=== PATIENT | female | born 1935 | race Caucasian/White ===

== ENCOUNTER 2019-11-19 16:42 | Emergency (ER) | payer MEDICARE, BC ==
--- NOTE | 2019-11-19 17:11 | RADIOLOGY REPORT (SQ) ---
EXAM DESCRIPTION: CHEST SINGLE VIEW COMPLETED DATE/TIME: 11/19/2019 5:02 pm REASON FOR STUDY: bed 9 sepsis protocol COMPARISON: None. EXAM PARAMETERS: NUMBER OF VIEWS: One view. TECHNIQUE: Single frontal radiographic view of the chest acquired. RADIATION DOSE: NA LIMITATIONS: None. FINDINGS: LUNGS AND PLEURA: Emphysematous change with hyperinflation. No focal consolidation, pleur al effusion or pneumothorax. MEDIASTINUM AND HILAR STRUCTURES: No masses. Contour normal. HEART AND VASCULAR STRUCTURES: Heart normal in size. Normal vasculature. BONES: No acute findings. HARDWARE: Left subclavian base chest port with catheter tip at SVC. OTHER: No other significant finding. IMPRESSION: Emphysematous change without evidence of acute cardiopulmonary process. TECHNICAL DOCUMENTATION: JOB ID: [id number] 2010 [employer]- All Rights Reserved Reading location - IP/workstation name: [email or web address]
[2019-11-19] MEDS ORDERED: NORMAL SALINE 250 ML IV ONE (17:43)
[2019-11-19] MEDS ORDERED: NORMAL SALINE 1000 ML 1,000 ML IV ONE (17:45)
[2019-11-19 18:11] LABS: ABSOLUTE LYMPHOCYTES (AUTO) 0.8 10^3/uL (0.5-4.7); ABSOLUTE MONOCYTES (AUTO) 0.8 10^3/uL (0.1-1.4); ABSOLUTE NEUT (AUTO) 8.5 10^3/uL (1.7-8.2); BASOPHILS % (AUTO) 0.2 % (0-2); HEMATOCRIT 36.8 % (36.0-47.0); HEMOGLOBIN 12.7 g/dL (12.0-15.5); LYMPHOCYTES % (AUTO) 8.1 % (13-45); MEAN CORPUSCULAR HEMOGLOBIN 31.1 pg (27.0-33.4); MEAN CORPUSCULAR HGB CONC 34.5 g/dL (32.0-36.0); MEAN CORPUSCULAR VOLUME 90 fl (80-97); MONOCYTES % (AUTO) 8.1 % (3-13); PLATELET COUNT 114 10^3/uL (150-450); RED BLOOD COUNT 4.08 10^6/uL (3.72-5.28); RED CELL DISTRIBUTION WIDTH 12.4 % (11.5-14.0); SEGMENTED NEUTROPHILS % (AUTO) 83.6 % (42-78); TOTAL CELLS COUNTED % (AUTO) 100 %; WHITE BLOOD COUNT 10.2 10^3/uL (4.0-10.5)
[2019-11-19 18:18] LABS: INTERNATIONAL RATION (INR) 1.19; PROTHROMBIN TIME 15.2 SEC (11.4-15.4)
[2019-11-19 18:19] LABS: VENOUS BLOOD BASE EXCESS 0.2 mmol/L; VENOUS BLOOD HCO3 24.3 mmol/L (20-32); VENOUS BLOOD PCO2 37.9 mmHg (35-63); VENOUS BLOOD PH 7.42 (7.30-7.42)
[2019-11-19 18:26] LABS: A TYPE INFLUENZA AG NEGATIVE (NEGATIVE); B INFLUENZA AG NEGATIVE (NEGATIVE)
[2019-11-19 18:33] LABS: ALBUMIN 3.2 g/dL (3.5-5.0); ALKALINE PHOSPHATASE 130 U/L (38-126); ANION GAP 10 (5-19); ASPARTATE AMINO TRANSFERASE 30 U/L (14-36); BILIRUBIN,TOTAL 0.6 mg/dL (0.2-1.3); BLOOD UREA NITROGEN 13 mg/dL (7-20); CALCIUM 8.7 mg/dL (8.4-10.2); CARBON DIOXIDE 24 mmol/L (22-30); CHLORIDE 95 mmol/L (98-107); GLUCOSE 172 mg/dL (75-110); POTASSIUM 3.7 mmol/L (3.6-5.0); TOTAL PROTEIN 6.3 g/dL (6.3-8.2)
--- NOTE | 2019-11-19 18:48 | EKG REPORT ---
SEVERITY:- ABNORMAL ECG - SINUS RHYTHM LVH WITH IVCD, LAD AND SECONDARY REPOL ABNRM : Confirmed by: Brenda Vásquez 19-Nov-2019 18:48:10
[2019-11-19 20:44] LABS: APPEARANCE,URINE SLIGHTLY-CLOUDY; BILIRUBIN,URINE NEGATIVE (NEGATIVE); COLOR,URINE YELLOW; GLUCOSE, URINE NEGATIVE (NEGATIVE); KETONES,URINE NEGATIVE (NEGATIVE); PROTEIN,URINE 30 mg/dL (NEGATIVE); URINE SPECIFIC GRAVITY 1.011; UROBILINOGEN,URINE NEGATIVE mg/dL (<2.0)
[2019-11-19] MEDS ORDERED: CIPROFLOXACIN HCL 500 MG TABLET PO ONE (20:52)
[2019-11-19] MEDS ORDERED: LEVOFLOXACIN 750 MG/D5W RTU 750 MG/150 ML RTUPB IV ONE (22:43)
--- NOTE | 2019-11-20 01:39 | ER Document Report ---
Entered by DAGMAR ETIENNE SCRIBE 11/19/19 9916 Acting as scribe for:JAMIE CROSS MD ED General - General Chief Complaint: General Weakness Stated Complaint: WEAKNESS Time Seen by Provider: 11/19/19 17:11 Primary Care Provider: ANDREA MIMS [NO TYRESE MD] - Follow up as needed Information source: Patient, Relative Notes: 84-year-old female presents to the emergency department stating that her "children said I had a bad fever". Patient states that she has no complaints to report when asked. Patient says that "somebody gave me something" for the fever but could not recall what the medication was. Patient's relative stated that this morning, patient could not do anything on her own. Son stated that he had to help her to the bathroom and physically pick her up to move her. Son also stated that she looked "really bad" this morning and that she looks better now. Patient reports chills and cough. Patient denies dysuria, frequency, diarrhea, nausea, vomiting, diaphoresis, sore throat and headache. Past Medical History - General Information source: Patient - Social History Smoking Status: Never Smoker Cigarette use (# per day): No Chew tobacco use (# tins/day): No Frequency of alcohol use: None Drug Abuse: None Lives with: Family Family History: Reviewed & Not Pertinent Patient has suicidal ideation: No Patient has homicidal ideation: No EENT Medical History: Reports: Ears - Deaf Malignancy Medical History: Reports: Hx Pancreatic Cancer Past Surgical History: Reports: Hx Myringotomy - Multiple surgeries throughout life Review of Systems - Review of Systems Constitutional: See HPI, Chills, Fever. denies: Diaphoresis EENT: See HPI. denies: Throat pain Cardiovascular: No symptoms reported Respiratory: See HPI, Cough Gastrointestinal: See HPI. denies: Diarrhea, Nausea, Vomiting Genitourinary: See HPI. denies: Dysuria, Frequency Female Genitourinary: No symptoms reported Musculoskeletal: No symptoms reported Skin: No symptoms reported Hematologic/Lymphatic: No symptoms reported Neurological/Psychological: No symptoms reported -: Yes All other systems reviewed and negative Physical Exam - Vital signs Vitals: Pulse Ox 95 11/19/19 16:48 - Notes Notes: Physical Exam: General: Alert, appears well. HEENT: Normocephalic. Atraumatic. PERRL. Extraocular movements intact. Oropharynx clear. Dry mouth. Neck: Supple. Non-tender. Respiratory: No respiratory distress. Clear and equal breath sounds bilaterally. Cardiovascular: Regular rate and rhythm. Abdominal: Normal Inspection. Non-tender. No distension. Normal Bowel Sounds. Back: No gross abnormalities. Extremities: Moves all four extremities. Upper extremities: Normal inspection. Normal ROM. Lower extremities: Normal inspection. No edema. Normal ROM. Neurological: Normal cognition. AAOx4. Normal speech. Psychological: Normal affect. Normal Mood. Skin: Warm. Dry. Normal color. Course - Re-evaluation Re-evalutation: 11/19/19 17:52 Currently patient states that she has no complaints of any kind at this time. Patient reports family noted that she had a fever therefore she was sent to the emergency department. - Vital Signs Vital signs: Temp Pulse Resp BP Pulse Ox 98.2 F 21 H 130/66 H 95 11/19/19 21:44 11/19/19 20:00 11/19/19 20:00 11/19/19 20:00 - Laboratory Result Diagrams: 11/19/19 17:25 11/19/19 17:25 Laboratory results interpreted by me: 11/19/19 11/19/19 11/19/19 17:25 17:25 20:10 Plt Count 114 L Lymph % (Auto) 8.1 L Absolute Neuts (auto) 8.5 H Seg Neutrophils % 83.6 H Sodium 129.3 L Chloride 95 L Glucose 172 H POC Glucose Alkaline Phosphatase 130 H Albumin 3.2 L Urine Protein 30 H Urine Blood SMALL H Leukocyte Esterase Rfl MODERATE H 11/19/19 22:38 Plt Count Lymph % (Auto) Absolute Neuts (auto) Seg Neutrophils % Sodium Chloride Glucose POC Glucose 160 H Alkaline Phosphatase Albumin Urine Protein Urine Blood Leukocyte Esterase Rfl Urinary tract infection - Diagnostic Test Radiology reviewed: Image reviewed, Reports reviewed Radiology results interpreted by me: 11/19/19 17:52 Chest x-seth showed emphysematous changes without any acute infiltrate no acute cardiopulmonary disease noted. 11/20/19 01:34 Chest x-ray no acute process emphysematous changes as noted by radiologist. - EKG Interpretation by Me Additional EKG results interpreted by me: 11/19/19 17:51 Twelve-lead EKG done 11/19/2019 at 1703 shows normal sinus rhythm rate of 99 left ventricular hypertrophy with interventricular conduction delay LAD and secondary repull abnormalities noted. Discharge - Discharge Clinical Impression: Urinary tract infection, Acute bronchitis, Pancreatic cancer Condition: Good Disposition: HOME, SELF-CARE Instructions: Urinary Tract Infection ([facility]) Additional Instructions: Bronchitis You have acute bronchitis. This disease is an infection or inflammation of the air passageways in your lungs. Symptoms usually include cough, low grade fever, shortness of breath, and wheezing. The cough usually persists for a couple of weeks. Most cases of bronchitis get better without antibiotics. We prescribe antibiotics when we believe bacteria are damaging your airways, or if there's high risk the bronchitis will worsen into pneumonia. Increase your fluid intake. A cool mist humidifier may make your lungs more comfortable. An expectorant (cough medicine that loosens phlegm) can help. If you smoke, STOP!!! Recovery from bronchitis can be somewhat slow, but you should see improvement within a day or two. Repeated episodes of bronchitis may result in lung damage -- for example, chronic bronchitis, recurrent pneumonias, or emphysema. Call the doctor if you develop increasing fever, shortness of breath, chest pain, bloody sputum, or otherwise worsen. If you have not improved at all after several days, contact the physician. Urinary Tract Infection Your evaluation indicates that you have a urinary tract infection. This is due to germs growing in the bladder. This is a common problem. This infection usually responds quickly to antibiotics. Your antibiotic should be taken exactly as prescribed. Drink plenty of fluids -- three to four quarts a day. Occasionally, a bladder anesthetic will be prescribed to help stop the fe eling of urgency until the antibiotic has a chance to clear the infection. This may cause your urine to be dark orange. Certain urine infections require a culture. If the doctor obtained a cult ure, the results will be back in two days. You should call to see if a change in treatment is needed. A repeat urinalysis after you finish treatment is often recommended. The physician will let you know if further testing is required. Call the doctor if you develop fever, chills, flank pain, inability to urinate, or blood in the urine. Prescriptions: Levofloxacin [Levaquin 500 mg Tablet] 500 mg PO DAILY #10 tablet Referrals: FELICITA,NO [NO LOCAL MD] - Follow up as needed I personally performed the services described in the documentation, reviewed and edited the documentation which was dictated to the scribe in my presence, and it accurately records my words and actions.
[2019-11-20 02:33] VITALS: BP 134/72
== END 2019-11-20 02:33 | disposition home or self-care (01) ==
LOC: ER 16:42
DX: N39.0 Urinary tract infection, site not specified (principal); C25.9 Malignant neoplasm of pancreas, unspecified; J20.9 Acute bronchitis, unspecified; R50.9 Fever, unspecified; R53.1 Weakness
CPT/HCPCS: 93005; 99284; 96361; 96365; 96366; 36415; 87040; 87070; 87086; 87205; 82962; 83605; 85025; 85610; 87077; 87088; 80053; 81001; 87186; 82803; 87804; 71045; 93010; A9270; J7030; J7050; J1956